=== PATIENT | male | born 1990 | race Hispanic/Latino ===

== ENCOUNTER 2020-09-13 21:14 | Emergency (ER) | payer SELFPAY ==
[2020-09-13] MEDS ORDERED: Lidocaine 1% (PF) 30 ML VIAL ONE ×2 (21:58)
[2020-09-13] MEDS ORDERED: Boostrix 0.5 ML (Tdap) VIAL ONE ×2 (22:00→22:50)
[2020-09-13] MEDS ORDERED: Bacitracin 1 PK ONE (22:50)
[2020-09-13] MEDS ORDERED: TETANUS, DIPHTHERIA TOX,ADULT (TDVAX) 0.5 ML VIAL IM ONE (23:00)
== END 2020-09-13 23:16 | disposition home or self-care (01) ==
LOC: ERS 21:14
DX: S61.210A Laceration without foreign body of right index finger without damage to nail, initial encounter (principal); Z23 Encounter for immunization; W26.9XXA Contact with unspecified sharp object(s), initial encounter; Y99.0 Civilian activity done for income or pay
CPT/HCPCS: 12001; 90471; 90714; 90715; J2001